=== PATIENT | male | born 1960 | race Caucasian/White ===

== ENCOUNTER 2016-06-15 10:55 | Emergency (ER) | payer OTHER ==
[~2016-06-15] VITALS: Ht 179.1 cm; Wt 113.4 kg
[2016-06-15 11:06] VITALS: BP 136/76
[2016-06-15] MEDS ORDERED: OFLO5DRO EACHEYE (12:05)
--- NOTE | 2016-06-15 12:05 | PHYS DOC ---
Past Medical History Past Medical History: High Cholesterol, Hypertension Past Surgical History: No Surgical History Alcohol Use: Heavy Additional Information: "couple of cocktails per day" Drug Use: None Adult General Chief Complaint Chief Complaint: EYE PROBLEMS HPI HPI Patient is a 56 year old male presents emergency department stating that he has having bilateral eye redness and discomfort. He states that they itch. He had seen an eye doctor earlier in the week was placed on neomycin poly-mix with DEXA Methasone and it. He states that the eyes have gotten worse. He is unsure whether he touch the eye drops to the eye or not. He states that he occasionally has clear to yellow drainage from his eyes. He does state prior to this occurring he has sinus infection. He denies any use of contact lenses. He denies any change in vision. Review of Systems Review of Systems Constitutional: Denies fever or chills [] Eyes: Denies change in visual acuity, c/o redness, denies eye pain [] HENT: Denies nasal congestion or sore throat [] Respiratory: Denies cough or shortness of breath [] Cardiovascular: No additional information not addressed in HPI [] GI: Denies abdominal pain, nausea, vomiting, bloody stools or diarrhea [] : Denies dysuria or hematuria [] Musculoskeletal: Denies back pain or joint pain [] Integument: Denies rash or skin lesions [] Neurologic: Denies headache, focal weakness or sensory changes [] Allergies Allergies Allergies Coded Allergies Type Severity Reaction Last Updated Verified Penicillins Allergy Unknown 06/15/16 Yes Physical Exam Physical Exam Constitutional: Well developed, well nourished, no acute distress, non-toxic appearance. [] HENT: Normocephalic, atraumatic, bilateral external ears normal, oropharynx moist, no oral exudates, nose normal. Bilateral tympanic membranes appear to be normal. No sinus tenderness noted along the maxillary. Eyes: PERRLA, EOMI, conjunctiva red, bilateral eye drainage noted [] Neck: Normal range of motion, no tenderness, supple, no stridor. [] Cardiovascular:Heart rate regular rhythm, no murmur [] Lungs & Thorax: Bilateral breath sounds clear to auscultation [] Skin: Warm, dry, no erythema, no rash. [] Back: No tenderness Extremities: No tenderness, no cyanosis, no clubbing, ROM intact, no edema. [] Neurologic: Alert and oriented X 3, normal motor function, normal sensory function, no focal deficits noted. [] Psychologic: Affect normal, judgement normal, mood normal. [] Current Patient Data Vital Signs Vital Signs Date Time Temp Pulse Resp B/P Pulse Ox O2 Delivery O2 Flow Rate FiO2 06/15/16 11:06 98.9 67 18 96 Room Air 98.9 EKG EKG [] Radiology/Procedures Radiology/Procedures [] Course & Med Decision Making Course & Med Decision Making Pertinent Labs and Imaging studies reviewed. (See chart for details) Patient will be placed on ofloxacin for both eyes. Recommended plenty of fluids. Patient will be discharged home in stable condition signs and symptoms to return back to emergency department as been provided. Encourage patient to follow up with his eye doctor next week. Patient agrees with discharge instructions treatment regimens and follow-up recommendations. [] Dragon Disclaimer Dragon Disclaimer This electronic medical record was generated, in whole or in part, using a voice recognition dictation system. Departure Departure Impression: Primary Impression: Conjunctivitis of both eyes Disposition: 01 HOME, SELF-CARE Condition: STABLE Referrals: EPIFANIO JENSEN (PCP) Patient Instructions: Conjunctivitis, Chemical, [id number] Additional Instructions: Activity as tolerated. Medications as prescribed. Do not touch the dropper to the eye. Good handwashing is essential Follow-up with your eye doctor next week. Return back to emergency prior signs of become worse. Scripts Ofloxacin (Ocuflox)5 Ml Drops1-2 Drop EACHEYE BID #1 BOTTLE Prov:ALEXANDRIA MAURO APRN 06/15/16 ALEXANDRIA MAURO APRN Jun 15, 2016 12:05
== END 2016-06-15 12:20 | disposition home or self-care (01) ==
LOC: ER 10:55
DX: H10.9 Unspecified conjunctivitis (principal); E78.00 Pure hypercholesterolemia, unspecified; I10 Essential (primary) hypertension; Z88.0 Allergy status to penicillin
CPT/HCPCS: 99283